=== PATIENT | male | born 1960 | race Two or more races ===

== ENCOUNTER → 2024-05-19 | Emergency (ER) | payer OTHER ==
[~2024-05-19] VITALS: Ht 170.2 cm; Wt 99.8 kg
[~2024-05-19] MED LIST: ADULT ASPIRIN81 MG PO; ALLEGRA ALLERG180 MG PO; CLONAZEPAM2 MG PO; CLOTRIMAZOLE-BE15 G1 TOP; DESVENLAFAXINE100 M3 PO; FARXIGA5 MG PO; GENTAMICIN SULFATE 3.5 GM TUBE OP ONE; GLIPIZIDE XL10 MG PO; JANUVIA50 MG PO; LAMICTAL100 MG PO; LOSARTAN POTASS50 MG PO; NEURONTIN300 MG PO; PERCOCET 5-3251 EACH PO; PREGABALIN75 MG PO; SIMVASTATIN5 MG PO; TOPROL XL25 M1 PO; ZADITOR5 ML OP
[2024-05-19 12:46] VITALS: BP 99/68; O2SAT 98
== END | disposition home or self-care (01) ==
LOC: ER 11:15
DX: H10.10 Acute atopic conjunctivitis, unspecified eye (principal); R21 Rash and other nonspecific skin eruption